=== PATIENT | male | born 1960 | race Caucasian/White ===

== ENCOUNTER → 2016-12-05 | Outpatient (REF) | payer BC, OTHER ==
[2016-12-05 13:56] LABS: BACTERIA, URINE NONE SEEN; HYALINE CAST, URINE NONE SEEN /lpf (0-1); RBC, URINE NONE SEEN /hpf (0-3); SQUAMOUS EPITHELIAL CELL URINE NONE SEEN /hpf (SMALL AMT); WBC, URINE NONE SEEN /hpf (0-3)
[2016-12-05 13:57] LABS: MICROSCOPIC EXAM PERFORMED
== END ==
LOC: M SMT 13:06
PROVIDERS: ATTEND Specialist
DX: R35.0 Frequency of micturition (principal)

== ENCOUNTER → 2017-01-11 | Outpatient (REF) | payer BC, OTHER | LOC: M LAB REF 11:58 | PROVIDERS: ATTEND Internal Medicine Medical Oncology | DX: E83.119 Hemochromatosis, unspecified (principal) ==

== ENCOUNTER → 2017-02-15 | Outpatient (REF) | payer BC, OTHER | LOC: M LAB REF 13:10 | PROVIDERS: ATTEND Internal Medicine Medical Oncology | DX: E83.110 Hereditary hemochromatosis (principal) ==

== ENCOUNTER → 2017-05-06 | Outpatient (REF) | payer BC, OTHER ==
[2017-05-06 20:43] LABS: PERCENT SATURATION 27.8 % (19.7-37.4)
== END ==
LOC: M LAB REF 18:29
PROVIDERS: ATTEND Internal Medicine Medical Oncology
DX: E83.110 Hereditary hemochromatosis (principal)

== ENCOUNTER → 2017-07-11 | Outpatient (REF) | payer BC, OTHER | LOC: M LAB REF 13:28 | PROVIDERS: ATTEND Internal Medicine Medical Oncology | DX: E83.119 Hemochromatosis, unspecified (principal) ==

== ENCOUNTER → 2017-11-08 | Outpatient (REF) | payer BC, OTHER ==
[2017-11-08 14:51] LABS: FERRITIN 127 NG/ML (26-388); IRON (FE) 111 UG/DL (65-175); PERCENT SATURATION 30.3 % (19.7-50.0); TOTAL IRON BINDING CAPACITY 366 UG/DL (250-450)
== END ==
LOC: M LAB REF 13:41
DX: E83.119 Hemochromatosis, unspecified (principal)
CPT/HCPCS: 83550

== ENCOUNTER → 2018-06-05 | Outpatient (REF) | payer BC, OTHER ==
[2018-06-05 13:57] LABS: TESTOSTERONE 396 NG/DL (241-827)
== END ==
LOC: M LAB REF 12:16
DX: E29.1 Testicular hypofunction (principal)
CPT/HCPCS: 84403

== ENCOUNTER 2018-09-04 09:34 | Day surgery (SDC) | payer OTHER ==
[~2018-09-04 09:34] MED LIST: PROPOFOL 200 MG/20 ML VIAL As Ordered
[2018-09-04] MEDS: NS 1,000 ML IV (10:00)
== END 2018-09-04 11:11 | disposition home or self-care (01) ==
LOC: M OPP 09:34
DX: Z12.11 Encounter for screening for malignant neoplasm of colon (principal); D12.7 Benign neoplasm of rectosigmoid junction; D12.5 Benign neoplasm of sigmoid colon; D12.2 Benign neoplasm of ascending colon; K57.30 Diverticulosis of large intestine without perforation or abscess without bleeding; E11.9 Type 2 diabetes mellitus without complications; E78.00 Pure hypercholesterolemia, unspecified; E83.119 Hemochromatosis, unspecified; Z79.84 Long term (current) use of oral hypoglycemic drugs; Z79.899 Other long term (current) drug therapy
CPT/HCPCS: 45385

== ENCOUNTER → 2018-09-05 | Outpatient (REF) | payer OTHER ==
[2018-09-05 13:18] LABS: FERRITIN 103 NG/ML (26-388)
[2018-09-05 13:18] LABS: GAMMA GLUTAMYLTRANSPEPTIDASE 83 U/L (15-85)
== END ==
LOC: M LAB REF 12:19
DX: E83.119 Hemochromatosis, unspecified (principal)

== ENCOUNTER → 2019-06-05 | Outpatient (REF) | payer OTHER ==
[~2019-06-05] MED LIST changes: +ASPI81TA26 PO; +METF10004 PO; +OXYB5TAB10 PO; -PROPOFOL 200 MG/20 ML VIAL As Ordered; +VENTAER INH
[2019-06-05 13:44] LABS: PERCENT SATURATION 31.3 % (19.7-50.0)
== END ==
LOC: M LAB REF 12:47
PROVIDERS: ATTEND Family Medicine
DX: E83.110 Hereditary hemochromatosis (principal)

== ENCOUNTER → 2019-11-17 | Outpatient (REF) | payer OTHER ==
[2019-11-18 19:50] LABS: PERCENT SATURATION 43.2 % (19.7-50.0)
== END ==
LOC: M LAB REF 17:31
PROVIDERS: ATTEND Family Medicine
DX: E83.110 Hereditary hemochromatosis (principal)

== ENCOUNTER → 2020-08-19 | Outpatient (REF) | payer OTHER ==
[2020-08-22 17:25] LABS: PERCENT SATURATION 39.7 % (19.7-50.0)
== END ==
LOC: M LAB REF 16:13
PROVIDERS: ATTEND Family Medicine
DX: E83.110 Hereditary hemochromatosis (principal)

== ENCOUNTER → 2021-02-28 | Outpatient (REF) | payer OTHER ==
[2021-02-28 13:33] LABS: PERCENT SATURATION 33.4 % (19.7-50.0)
== END ==
LOC: M LAB REF 12:17
PROVIDERS: ATTEND Family Medicine
DX: E83.110 Hereditary hemochromatosis (principal)

== ENCOUNTER → 2021-09-05 | Outpatient (REF) | payer OTHER | LOC: M LAB REF 16:19 | PROVIDERS: ATTEND Family Medicine | DX: R35.0 Frequency of micturition (principal) ==

== ENCOUNTER → 2022-04-30 | Outpatient (REF) | payer OTHER ==
[2022-05-01 21:19] LABS: PERCENT SATURATION 32.2 % (19.7-50.0)
== END ==
LOC: M LAB REF 17:47
PROVIDERS: ATTEND Family Medicine
DX: E83.110 Hereditary hemochromatosis (principal)

== ENCOUNTER → 2023-04-12 | Outpatient (REF) | payer BC | LOC: M LAB REF 12:17 | PROVIDERS: ATTEND Family Medicine | DX: D69.6 Thrombocytopenia, unspecified (principal) ==

== ENCOUNTER 2023-05-02 09:55 | Day surgery (SDC) | payer BC ==
[~2023-05-02] VITALS: Ht 185.4 cm; Wt 112.0 kg
[~2023-05-02 09:55] MED LIST changes: +LIDOCAINE 2% 100MG/5ML SDV (FOR ANES.) As Ordered ONE; +MYRB50TA PO; +NS 1,000 ML IV ONE; +PIOG1TAB37 PO; +SILD100T PO; +TRUL10IN SQ; +propofoL 200 MG/20 ML VIAL As Ordered ONE
[2023-05-02 11:34] VITALS: TEMP 96.7
[2023-05-02 11:48] VITALS: BP 94/60; O2SAT 96
== END 2023-05-02 11:56 | disposition home or self-care (01) ==
LOC: M OPP 09:55
PROVIDERS: ATTEND Surgery
DX: Z12.11 Encounter for screening for malignant neoplasm of colon (principal); Z86.010 Personal history of colon polyps; K63.5 Polyp of colon; K57.30 Diverticulosis of large intestine without perforation or abscess without bleeding; Z79.51 Long term (current) use of inhaled steroids; Z79.82 Long term (current) use of aspirin; Z79.84 Long term (current) use of oral hypoglycemic drugs; Z79.899 Other long term (current) drug therapy; Z88.8 Allergy status to other drugs, medicaments and biological substances

== ENCOUNTER → 2023-07-04 | Outpatient (CLI) | payer BC ==
[~2023-07-04] MED LIST changes: -LIDOCAINE 2% 100MG/5ML SDV (FOR ANES.) As Ordered ONE; -NS 1,000 ML IV ONE; -propofoL 200 MG/20 ML VIAL As Ordered ONE
== END ==
LOC: M PLALAB 11:28
PROVIDERS: ATTEND Internal Medicine Endocrinology, Diabetes & Metabolism
DX: E11.65 Type 2 diabetes mellitus with hyperglycemia (principal)

== ENCOUNTER → 2023-08-29 | Outpatient (CLI) | payer BC ==
[~2023-08-29] MED LIST changes: -OXYB5TAB10 PO; +OXYB5TAB11 PO
[2023-08-29 09:47] LABS: ALBUMIN 3.7 G/DL (3.2-5.2); ALKALINE PHOSPHATASE 68 U/L (46-116); ALT/SGPT 48 U/L (7.0-40); AST/SGOT 29 U/L (<34); BILIRUBIN,TOTAL 0.8 MG/DL (0.3-1.2); BLOOD UREA NITROGEN 15 MG/DL (9-23); CALCIUM LEVEL 9.4 MG/DL (8.3-10.6); CARBON DIOXIDE LEVEL 26 MMOL/L (20-31); CHLORIDE LEVEL 102 MMOL/L (98-107); CREATININE FOR GFR 0.58 MG/DL (0.70-1.30); GLOMERULAR FILTRATION RATE > 60.0 (>49); GLUCOSE, FASTING 180 MG/DL (74-106); POTASSIUM SERUM 4.4 MMOL/L (3.5-5.1); SODIUM LEVEL 136 MMOL/L (136-145); TOTAL PROTEIN 7.3 G/DL (5.7-8.2)
[2023-08-29 10:02] LABS: HEMOGLOBIN A1c 7.7 % (4.0-6.0)
== END ==
LOC: M LAB 08:19
PROVIDERS: ATTEND Family Medicine
DX: I10 Essential (primary) hypertension (principal); E11.9 Type 2 diabetes mellitus without complications

== ENCOUNTER → 2023-09-04 | Outpatient (REF) | payer BC ==
[2023-09-04 18:21] LABS: PERCENT SATURATION 31.5 % (19.7-50.0)
[2023-09-04 18:24] LABS: FERRITIN 122.8 NG/ML (10.5-307.3)
== END ==
LOC: M LAB REF 16:33
PROVIDERS: ATTEND Family Medicine
DX: E83.110 Hereditary hemochromatosis (principal)

== ENCOUNTER → 2023-12-30 | Outpatient (CLI) | payer BC ==
[~2023-12-30] MED LIST changes: -OXYB5TAB11 PO; +OXYB5TAB14 PO
== END ==
LOC: M LAB 08:10
PROVIDERS: ATTEND Physician Assistant
DX: R97.20 Elevated prostate specific antigen [PSA] (principal)
CPT/HCPCS: 36415; G0103

== ENCOUNTER → 2023-12-30 | Outpatient (CLI) | payer BC ==
[2023-12-30 10:21] LABS: HEMOGLOBIN A1c 9.4 % (4.0-6.0)
[2023-12-30 10:25] LABS: ALBUMIN 3.9 G/DL (3.2-5.2); ALKALINE PHOSPHATASE 93 U/L (46-116); ALT/SGPT 58 U/L (7.0-40); AST/SGOT 32 U/L (<34); BILIRUBIN,TOTAL 0.5 MG/DL (0.3-1.2); BLOOD UREA NITROGEN 15 MG/DL (9-23); CALCIUM LEVEL 8.8 MG/DL (8.3-10.6); CARBON DIOXIDE LEVEL 25 MMOL/L (20-31); CHLORIDE LEVEL 107 MMOL/L (98-107); CHOLESTEROL LEVEL 212 MG/DL (<200); CHOLESTEROL RISK RATIO 5.68 (<5); CREATININE FOR GFR 0.62 MG/DL (0.70-1.30); GLOMERULAR FILTRATION RATE > 60.0 (>49); GLUCOSE, FASTING 259 MG/DL (74-106); HDL CHOLESTEROL 37.3 MG/DL (>40); LDL CHOLESTEROL 154.3 MG/DL (<100); NON-HDL-C 174.7 MG/DL; POTASSIUM SERUM 4.3 MMOL/L (3.5-5.1); SODIUM LEVEL 137 MMOL/L (136-145); TOTAL PROTEIN 7.3 G/DL (5.7-8.2); TRIGLYCERIDES LEVEL 102 MG/DL (<150)
[2023-12-30 10:26] LABS: THYROID STIMULATING HORMONE 1.544 uIU/ML (0.55-4.78)
== END ==
LOC: M LAB 08:07
PROVIDERS: ATTEND Family Medicine
DX: E11.65 Type 2 diabetes mellitus with hyperglycemia (principal); Z79.84 Long term (current) use of oral hypoglycemic drugs

== ENCOUNTER → 2024-02-28 | Outpatient (CLI) | payer BC | LOC: M LAB 08:47 | PROVIDERS: ATTEND Physician Assistant | DX: R97.20 Elevated prostate specific antigen [PSA] (principal) ==

== ENCOUNTER → 2024-02-28 | Outpatient (CLI) | payer BC | LOC: M WUC 09:33 | PROVIDERS: ATTEND Family Medicine | DX: R14.0 Abdominal distension (gaseous) (principal); K80.20 Calculus of gallbladder without cholecystitis without obstruction; N20.0 Calculus of kidney ==

== ENCOUNTER → 2024-06-18 | Outpatient (CLI) | payer BC | LOC: M LAB 08:39 | PROVIDERS: ATTEND Physician Assistant | DX: R97.20 Elevated prostate specific antigen [PSA] (principal) ==

== ENCOUNTER → 2024-06-18 | Outpatient (CLI) | payer BC ==
[2024-06-18 10:37] LABS: HEMOGLOBIN A1c 10.7 % (4.0-6.0)
[2024-06-18 10:54] LABS: ALBUMIN 3.8 G/DL (3.2-5.2); ALKALINE PHOSPHATASE 81 U/L (46-116); ALT/SGPT 34 U/L (7.0-40); AST/SGOT 17 U/L (<34); BILIRUBIN,TOTAL 0.7 MG/DL (0.3-1.2); BLOOD UREA NITROGEN 16 MG/DL (9-23); CALCIUM LEVEL 9.3 MG/DL (8.3-10.6); CARBON DIOXIDE LEVEL 26 MMOL/L (20-31); CHLORIDE LEVEL 106 MMOL/L (98-107); CHOLESTEROL LEVEL 222 MG/DL (<200); CHOLESTEROL RISK RATIO 5.36 (<5); GLOMERULAR FILTRATION RATE > 60.0 (>49); GLUCOSE, FASTING 289 MG/DL (74-106); HDL CHOLESTEROL 41.4 MG/DL (>40); NON-HDL-C 180.6 MG/DL; SODIUM LEVEL 136 MMOL/L (136-145); THYROID STIMULATING HORMONE 1.108 uIU/ML (0.55-4.78); TOTAL PROTEIN 7.1 G/DL (5.7-8.2); TRIGLYCERIDES LEVEL 88 MG/DL (<150)
== END ==
LOC: M LAB 08:37
PROVIDERS: ATTEND Family Medicine
DX: E11.65 Type 2 diabetes mellitus with hyperglycemia (principal); I10 Essential (primary) hypertension; E78.00 Pure hypercholesterolemia, unspecified; F41.9 Anxiety disorder, unspecified

== ENCOUNTER → 2025-01-22 | Outpatient (CLI) | payer BC | LOC: M LAB 08:02 | PROVIDERS: ATTEND Physician Assistant | DX: R97.20 Elevated prostate specific antigen [PSA] (principal) ==

== ENCOUNTER → 2025-01-22 | Outpatient (CLI) | payer BC ==
[2025-01-22 08:51] LABS: BASO # 0.1 10^3/uL (0.0-0.2); BASO % 0.6 % (0.0-1.0); EOS # 0.2 10^3/uL (0.0-0.5); EOS % 2.4 % (0.0-3.0); HEMATOCRIT 46.8 % (42.0-52.0); HEMOGLOBIN 15.8 g/dl (13.5-17.5); LYMPH # 1.7 10^3/uL (1.5-5.0); LYMPH % 20.9 % (24.0-44.0); MEAN CORPUSCULAR HEMOGLOBIN 31.9 pg (27.0-33.0); MEAN CORPUSCULAR HGB CONC 33.8 g/dl (32.0-36.5); MEAN CORPUSCULAR VOLUME 94.4 fl (80.0-96.0); MONO # 0.8 10^3/uL (0.0-0.8); MONO % 10.2 % (2.0-8.0); NEUTROPHILS # 5.3 10^3/uL (1.5-8.5); NEUTROPHILS % 65.5 % (36.0-66.0); PLATELET COUNT, AUTOMATED 128 10^3/uL (150-450); RED BLOOD COUNT 4.96 10^6/uL (4.30-6.10)
[2025-01-22 08:53] LABS: HEMOGLOBIN A1c 7.4 % (4.0-6.0)
[2025-01-22 09:05] LABS: PROSTATIC SPECIFIC AG MONITOR 4.85 NG/ML (< 4.00)
[2025-01-22 09:06] LABS: CREATININE, URINE 73.6 MG/DL; MAU/CREAT RATIO 10.8 MCG/MG (0.0-30.0); TOTAL IRON BINDING CAPACITY 352 UG/DL (250-425)
[2025-01-22 09:07] LABS: ALBUMIN 3.6 G/DL (3.2-5.2); ALKALINE PHOSPHATASE 63 U/L (40-129); ALT/SGPT 39 U/L (7.0-40); AST/SGOT 23 U/L (<34); BILIRUBIN,TOTAL 0.6 MG/DL (0.3-1.2); BLOOD UREA NITROGEN 20 MG/DL (9-23); CALCIUM LEVEL 9.3 MG/DL (8.3-10.6); CARBON DIOXIDE LEVEL 27 MMOL/L (20-31); CHLORIDE LEVEL 107 MMOL/L (98-107); CREATININE FOR GFR 0.63 MG/DL (0.70-1.30); GLOMERULAR FILTRATION RATE > 60.0 (>49); GLUCOSE, FASTING 220 MG/DL (74-106); IRON (FE) 110 UG/DL (65-175); PERCENT SATURATION 31.3 % (19.7-50.0); POTASSIUM SERUM 4.3 MMOL/L (3.5-5.1); SODIUM LEVEL 139 MMOL/L (136-145)
[2025-01-22 09:09] LABS: FERRITIN 79.3 NG/ML (10.5-307.3)
== END ==
LOC: M LAB 07:59
PROVIDERS: ATTEND Family Medicine
DX: E11.65 Type 2 diabetes mellitus with hyperglycemia (principal); E78.00 Pure hypercholesterolemia, unspecified; E83.110 Hereditary hemochromatosis; R97.20 Elevated prostate specific antigen [PSA]

== ENCOUNTER → 2025-06-07 | Outpatient (CLI) | payer BC | LOC: M WUC 08:37 | PROVIDERS: ATTEND Physician Assistant | DX: R97.20 Elevated prostate specific antigen [PSA] (principal) ==

== ENCOUNTER → 2025-06-07 | Outpatient (CLI) | payer BC ==
[2025-06-07 12:24] LABS: BASO # 0.1 10^3/uL (0.0-0.2); BASO % 1.1 % (0.0-1.0); EOS # 0.2 10^3/uL (0.0-0.5); EOS % 2.7 % (0.0-3.0); LYMPH # 1.9 10^3/uL (1.5-5.0); LYMPH % 21.8 % (24.0-44.0); MONO # 0.9 10^3/uL (0.0-0.8); MONO % 10.3 % (2.0-8.0); NEUTROPHILS # 5.4 10^3/uL (1.5-8.5); NEUTROPHILS % 63.6 % (36.0-66.0); PLATELET COUNT, AUTOMATED 153 10^3/uL (150-450)
[2025-06-07 12:51] LABS: ALT/SGPT 54 U/L (7.0-40); AST/SGOT 35 U/L (<34); CALCIUM LEVEL 9.3 MG/DL (8.3-10.6); CARBON DIOXIDE LEVEL 27 MMOL/L (20-31); CHLORIDE LEVEL 102 MMOL/L (98-107); CREATININE FOR GFR 0.65 MG/DL (0.70-1.30); GLOMERULAR FILTRATION RATE > 90.0 (>49); POTASSIUM SERUM 4.1 MMOL/L (3.5-5.1); SODIUM LEVEL 138 MMOL/L (136-145)
[2025-06-07 13:16] LABS: ESTIMATED AVERAGE GLUCOSE 269.0 MG/DL (60-110)
== END ==
LOC: M WUC 08:25
PROVIDERS: ATTEND Family Medicine
DX: E11.65 Type 2 diabetes mellitus with hyperglycemia (principal); E78.00 Pure hypercholesterolemia, unspecified; E83.110 Hereditary hemochromatosis; R97.20 Elevated prostate specific antigen [PSA]

== ENCOUNTER → 2025-09-14 | Outpatient (CLI) | payer BC ==
[2025-09-14 13:29] LABS: ALT/SGPT 56 U/L (7.0-40); AST/SGOT 38 U/L (<34); CALCIUM LEVEL 9.0 MG/DL (8.3-10.6); CARBON DIOXIDE LEVEL 27 MMOL/L (20-31); CHLORIDE LEVEL 105 MMOL/L (98-107); CREATININE FOR GFR 0.70 MG/DL (0.70-1.30); GLOMERULAR FILTRATION RATE > 90.0 (>49); IRON (FE) 125 UG/DL (65-175); PERCENT SATURATION 37.0 % (19.7-50.0); POTASSIUM SERUM 4.3 MMOL/L (3.5-5.1); SODIUM LEVEL 141 MMOL/L (136-145)
[2025-09-14 13:33] LABS: VITAMIN B12 LEVEL 367 PG/ML (211-911)
[2025-09-14 13:40] LABS: ESTIMATED AVERAGE GLUCOSE 160.0 MG/DL (60-110)
== END ==
LOC: M WUC 08:15
PROVIDERS: ATTEND Family Medicine
DX: E11.65 Type 2 diabetes mellitus with hyperglycemia (principal); E83.110 Hereditary hemochromatosis; I10 Essential (primary) hypertension